=== PATIENT | male | born 2000 | race Asian ===

== ENCOUNTER 2025-01-19 06:29 | Inpatient (IN) | payer SELFPAY ==
[~2025-01-19] VITALS: Ht 172.7 cm; Wt 93.9 kg
[2025-01-19 06:32] VITALS: O2SAT 99
[2025-01-19] MEDS: LACTATED RINGERS 1,000 ML IV SCH (07:10)
[2025-01-19] MEDS: DIAZEPAM 5 MG/ML 2ML SYR IV ONE ×2 (07:10→09:13)
[2025-01-19] MEDS: ONDANSETRON HCL 4MG/2ML INJ IV ONE (07:10)
[2025-01-19 07:32] LABS: CREATININE 1.0 mg/dL (0.6-1.3); UREA NITROGEN BLOOD 12 mg/dL (9-23)
[2025-01-19 07:33] LABS: TROPONIN I HIGH SENSITIVITY 29 ng/L (3.0-53)
[2025-01-19 07:34] LABS: ASPARTATE AMINOTRANSFERASE 36 IU/L (<34); BILIRUBIN TOTAL 0.7 mg/dL (0.1-1.0); PROTEIN TOTAL 8.2 g/dL (6.0-8.3)
[2025-01-19 08:32] LABS: BASOPHILS % 0.7 % (0.0-2.0); EOSINOPHILS % 1.1 % (0.0-5.0); HEMATOCRIT. 45.0 % (42.0-52.0); HEMOGLOBIN. 15.1 g/dL (14.0-18.0); LYMPHOCYTES % 18.8 % (20.0-50.0); MEAN PLATELET VOLUME 7.6 fl (7.4-10.4); MONOCYTES % 6.8 % (2.0-8.0); NEUTROPHILS % 72.6 % (40.0-76.0); PLATELET 327 x1000/uL (130-400); RED BLOOD CELL COUNT 5.28 mill/uL (4.7-6.1); RED CELL DISTRIBUTION WIDTH 13.2 % (11.6-14.6)
[2025-01-19 11:05] LABS: TROPONIN I HIGH SENSITIVITY 26 ng/L (3.0-53)
[2025-01-19] MEDS ORDERED: ZOLPIDEM TARTRATE 5MG TABLET PO PRN (11:30)
[2025-01-19] MEDS ORDERED: ACETAMINOPHEN 325MG TABLET PO PRN (11:30)
[2025-01-19] MEDS ORDERED: MAGNESIUM/ALUMINUM HYDROXIDE/SIMETHICONE 30ML UDC PO PRN (11:30)
[2025-01-19] MEDS ORDERED: HYDROCODONE/ACETAMINOPHEN 5/325MG TABLET PO PRN (11:30)
[2025-01-19] MEDS ORDERED: NALOXONE HCL 0.4MG/ML VIAL IV PRN (11:30)
[2025-01-19] MEDS ORDERED: CLONIDINE 0.1MG TABLET PO PRN (11:30)
[2025-01-19] MEDS ORDERED: ONDANSETRON HCL 4MG/2ML INJ IV PRN (11:30)
[2025-01-19] MEDS: MVI, ADULT NO.1 10 ML, FOLIC ACID 1 MG, THIAMINE HCL 100 MG in SODIUM CHLORIDE 0.9% 1,0... IV SCH (12:10)
[2025-01-19] MEDS: ENOXAPARIN 40MG/0.4ML SYR SUBCUT SCH (12:18)
[2025-01-19] MEDS: SODIUM CHLORIDE 0.9% 1,000 ML IV SCH (12:59)
[2025-01-19] MEDS: LORAZEPAM 2MG/ML UD SYRINGE IV PRN (13:39)
[2025-01-19 17:15] VITALS: BP 127/91; PULSE 110; RESP 20; TEMP 36.974
[2025-01-19 20:00] VITALS: BP 105/66; PULSE 87; RESP 16; TEMP 35.8; O2SAT 98
[2025-01-19 22:38] LABS: TROPONIN I HIGH SENSITIVITY 25 ng/L (3.0-53)
[2025-01-20 04:00] VITALS: BP 104/64; PULSE 63; RESP 18; TEMP 35.9; O2SAT 97
[2025-01-20 07:13] LABS: CLARITY URINE CLOUDY (CLEAR); COLOR URINE YELLOW (YELLOW)
[2025-01-20 07:14] LABS: GLUCOSE URINE NEGATIVE (NEGATIVE); KETONES URINE NEGATIVE (NEGATIVE); LEUKOCYTE ESTERASE URINE NEGATIVE (NEGATIVE); NITRITE URINE NEGATIVE (NEGATIVE); OCCULT BLOOD URINE NEGATIVE (NEGATIVE); PH URINE 7.5 (4.5-8.0); PROTEIN URINE NEGATIVE (NEGATIVE); SPECIFIC GRAVITY URINE 1.029 (1.005-1.030); UROBILINOGEN URINE 1.0 E.U./dL (0.2-1.0)
[2025-01-20 07:15] LABS: BACTERIA URINE TRACE; RBC URINE NONE SEEN /hpf (0-2); SQUAMOUS EPITHELIAL CELL URINE FEW /lpf (RARE/1+); WBC URINE 0-2 /hpf (0-2)
[2025-01-20 07:16] LABS: AMORPHOUS SEDIMENT URINE 3+ /lpf
[2025-01-20 07:50] LABS: BASOPHILS % 0.2 % (0.0-2.0); CREATININE 0.9 mg/dL (0.6-1.3); EOSINOPHILS % 1.7 % (0.0-5.0); HEMATOCRIT. 43.3 % (42.0-52.0); HEMOGLOBIN. 14.9 g/dL (14.0-18.0); LYMPHOCYTES % 27.9 % (20.0-50.0); MEAN PLATELET VOLUME 7.8 fl (7.4-10.4); MONOCYTES % 7.0 % (2.0-8.0); NEUTROPHILS % 63.2 % (40.0-76.0); PLATELET 300 x1000/uL (130-400); RED BLOOD CELL COUNT 5.20 mill/uL (4.7-6.1); RED CELL DISTRIBUTION WIDTH 13.0 % (11.6-14.6); UREA NITROGEN BLOOD 11 mg/dL (9-23)
[2025-01-20 07:52] LABS: *AMPHETAMINES SCREEN URINE NEGATIVE (NEGATIVE); *BARBITURATES SCREEN URINE NEGATIVE (NEGATIVE); *BENZODIAZEPINES SCREEN URINE PRESUMPTIVE POSITIVE (NEGATIVE); *COCAINE SCREEN URINE NEGATIVE (NEGATIVE); METHADONE URINE SCREEN NEGATIVE (NEGATIVE)
[2025-01-20 07:53] LABS: CANNABINOID URINE SCREEN NEGATIVE (NEGATIVE); ECSTASY MDMA SCREEN URINE NEGATIVE (NEGATIVE); OPIATES URINE SCREEN NEGATIVE (NEGATIVE); PHENCYCLIDINE URINE SCREEN NEGATIVE (NEGATIVE)
[2025-01-20] MEDS: PANTOPRAZOLE SODIUM 40 MG/VIAL IV SCH (08:35)
[2025-01-20 09:58] LABS: TROPONIN I HIGH SENSITIVITY 31 ng/L (3.0-53)
== END 2025-01-20 11:59 | disposition left against medical advice (07) | DRG 203 ==
LOC: ER 06:29 → 7WST 08:47 → EDBEDREQ 09:10 → EDBEDREQTM 09:10 → EDBEDREQSVC 10:19 → ENRESERV 15:51
PROVIDERS: ADMIT Internal Medicine; ATTEND Internal Medicine
DX: R07.89 Other chest pain (principal); F10.239 Alcohol dependence with withdrawal, unspecified; Z53.29 Procedure and treatment not carried out because of patient's decision for other reasons
CPT/HCPCS: 36415; 71045; 80048; 80053; 80305; 81003; 84443; 84484; 85025; 93005; 96361; 96374; 96375; 99291; J1650; J2060; J2405; J2470; J3411; J3490; J7030